=== PATIENT | female | born 1990 | race Caucasian/White ===

== ENCOUNTER 2017-06-16 04:54 | Inpatient (IN) | payer MEDICAID ==
[2017-06-16] MEDS ORDERED: MISOPROSTOL 0.2 MG TABLET ONE ×2 (05:10→11:30)
[2017-06-16] MEDS ORDERED: LIDOCAINE 1% INJ-PF (10 MG/ML) 30 ML SDV ONE ×2 (05:11→11:30)
[2017-06-16] MEDS ORDERED: FENTANYL/BUPIVACAINE/NS/PF 200 MCG/100 ML RTUINJ EPI ONE (05:11)
[2017-06-16] MEDS ORDERED: EPHEDRINE SULFATE INJ 50 MG/1 ML AMPULE ONE (05:11)
[2017-06-16] MEDS ORDERED: BUPIVACAINE HCL 0.25 % INJ/PF (2.5 MG/1 ML) 30 ML VIAL ONE (05:11)
[2017-06-16] MEDS ORDERED: OXYTOCIN/NORMAL SALINE 0 UNIT/0 ML RTUINJ ONE (05:11)
[2017-06-16] MEDS ORDERED: BUPIVACAINE HCL 0.25 % INJ/PF (2.5 MG/1 ML) 30 ML VIAL INFIL ONE (05:17)
[2017-06-16] MEDS ORDERED: FENTANYL/BUPIVACAINE/NS/PF 200 MCG/100 ML RTUINJ EPI PRN (05:17)
[2017-06-16] MEDS ORDERED: BENZOIN/ALOE VERA/STORAX/TOLU TINCTURE 60 ML TP PRN (05:17)
[2017-06-16] MEDS ORDERED: RINGERS SOLUTION,LACTATED 1,000 ML IV PRN (05:17)
[2017-06-16] MEDS ORDERED: EPHEDRINE SULFATE INJ 50 MG/1 ML AMPULE IV PRN (05:17)
[2017-06-16 06:00] LABS: ABSOLUTE BASOPHILS # (AUTO) 0.1 10^3/uL (0.0-0.2); ABSOLUTE EOSINOPHILS # (AUTO) 0.1 10^3/uL (0.0-0.6); ABSOLUTE LYMPHOCYTES (AUTO) 2.7 10^3/uL (0.5-4.7); BASOPHILS % (AUTO) 0.6 % (0-2); EOSINOPHILS % (AUTO) 0.4 % (0-6); HEMATOCRIT 38.2 % (36.0-47.0); HEMOGLOBIN 13.1 g/dL (12.0-15.5); HGB HCT DIFFERENCE 1.1; LYMPHOCYTES % (AUTO) 16.1 % (13-45); MEAN CORPUSCULAR HGB CONC 34.3 g/dL (32.0-36.0); MEAN CORPUSCULAR VOLUME 85 fl (80-97); MONOCYTES % (AUTO) 6.1 % (3-13); RED BLOOD COUNT 4.51 10^6/uL (3.72-5.28); RED CELL DISTRIBUTION WIDTH 13.5 % (11.5-14.0); SEGMENTED NEUTROPHILS % (AUTO) 76.8 % (42-78); WHITE BLOOD COUNT 16.9 10^3/uL (4.0-10.5)
[2017-06-16] MEDS: RINGERS SOLUTION,LACTATED 1,000 ML IV PRN ×2 (07:07→11:58)
[2017-06-16 10:18] LABS: APPEARANCE,URINE CLEAR; BILIRUBIN,URINE NEGATIVE (NEGATIVE); GLUCOSE, URINE NEGATIVE (NEGATIVE); KETONES,URINE TRACE mg/dL (NEGATIVE); LEUKOCYTE ESTERASE,URINE NEGATIVE (NEGATIVE); NITRITE,URINE NEGATIVE (NEGATIVE); PROTEIN,URINE NEGATIVE (NEGATIVE); URINE SPECIFIC GRAVITY 1.009; UROBILINOGEN,URINE NEGATIVE mg/dL (<2.0)
[2017-06-16 10:27] LABS: URINE BARBITURATES SCREEN NEGATIVE; URINE METHADONE SCREEN NEGATIVE; URINE OPIATES LOW NEGATIVE; URINE PHENCYCLIDINE SCREEN NEGATIVE
[2017-06-16] MEDS ORDERED: OXYTOCIN/NORMAL SALINE 1,000 ML IV PRN (11:30)
[2017-06-16] MEDS ORDERED: OXYTOCIN/NORMAL SALINE 20 UNIT/1,000 ML RTUINJ ONE (11:30)
--- NOTE | 2017-06-16 11:30 | L&D Progress Notes ---
PROGRESS NOTES Datetime Report Generated by CPN: 06/16/2017 11:29 PROGRESS NOTE Impression: Normal Progression of Labor Procedures: Artificial ROM; Sterile Vag Exam Plan: Continue Present Management; Augmentation Informed Consent Obtained: Vaginal Delivery Vital Signs : Within Normal Limits Comment: SVE performed with minimal cervical change since prior exam several hours ago. ctx q 2-5 min. Will begin pitocin to help with augmentation. AROM performed and clear fluid. Epidural in place and patient comfortable. Antcipate . EFW 7.5#. reassuring FWB VAGINAL EXAM Dilatation: 6 Dilatation: 5 Effacement: 90 Effacement: 100 Station: -1 Station: -1 MEMBRANES Membranes: Ruptured Membranes: Intact Amniotic Fluid Color: Clear FETUS A FHR - Baseline: 145 Monitoring: External US Variability: Moderate 6-25bpm Accelerations: 15X15 Decelerations: None FHR Category: Category I : 40.2 Presentation: Vertex SIGNATURE SIGNATURE: [id number];[id number] SIGNATURE: [id number] Signature: with User ID: [email or web address]
[2017-06-16] MEDS: OXYTOCIN/NORMAL SALINE 20 UNIT/1,000 ML RTUINJ IV PRN ×2 (11:58→17:54)
[2017-06-16] MEDS ORDERED: PROMETHAZINE HCL 25 MG SUPP.RECT PR PRN (17:00)
[2017-06-16] MEDS ORDERED: ACETAMINOPHEN 650 MG SUPP.RECT PR PRN (17:00)
[2017-06-16] MEDS ORDERED: BENZOCAINE/MENTHOL AEROSOL SPRAY 56 ML TOP PRN (17:00)
[2017-06-16] MEDS ORDERED: PROMETHAZINE HCL 25 MG TABLET PO PRN (17:00)
[2017-06-16] MEDS ORDERED: DIBUCAINE 1% OINTMENT 28 GM TP PRN (17:00)
[2017-06-16] MEDS ORDERED: DIPHENHYDRAMINE HCL 25 MG CAPSULE PO PRN (17:00)
[2017-06-16] MEDS ORDERED: DIPH/PERTUSS(ACELL)/TETANUS VAC/PF 0.5 ML SYR (>=10YO) IM PRN (17:00)
[2017-06-16] MEDS ORDERED: MAGNESIUM HYDROXIDE SUSP 30 ML UDCUP PO PRN (17:00)
[2017-06-16] MEDS ORDERED: GLYCERIN/WITCH HAZEL LEAF 1 EACH MED..PAD TP PRN (17:00)
[2017-06-16] MEDS ORDERED: PROMETHAZINE HCL INJ 25 MG/1 ML VIAL IV PRN (17:00)
[2017-06-16] MEDS ORDERED: OXYTOCIN/NORMAL SALINE 20 UNIT/1,000 ML RTUINJ IV PRN (17:00)
[2017-06-16] MEDS ORDERED: NA PHOS,M-B/NA PHOS,DI-BA (ADULT) 133 ML ENEMA PR PRN (17:00)
[2017-06-16] MEDS ORDERED: PSEUDOEPHEDRINE HCL 30 MG TABLET PO PRN (17:00)
[2017-06-16] MEDS ORDERED: MEASLES,MUMPS&RUBELLA VACC/PF 0.5 ML VIAL SUBCUT PRN (17:00)
[2017-06-16] MEDS ORDERED: ACETAMINOPHEN WITH CODEINE #3 TABLET PO PRN (17:00)
--- NOTE | 2017-06-16 18:07 | Delivery Summary ---
Del Sum A-C Datetime Report Generated by CPN: 06/16/2017 18:07 DELIVERY PERSONNEL DELIVERY PERSONNEL: [id number] Delivery Doctor:: Janny Viveros CNM Labor and Delivery Nurse:: Alice Gan RNprocess manager Nurse:: WINNIE Larsen Student Observers:: Sara, Student NICHOLAS Tirado, Student NICHOLAS Cox/RACE ENGINE BUILDER: Shayy Villalobos CNA II MATERNAL INFORMATION Delivery Anesthesia: Epidural Medications After Delivery: Pitocin Drip 20 Units/1000ml NSS Estimated Blood Loss (ml): 200 Maternal Complications: None Provider Comments: After prolonged decel pt progressed to c/c/+1. FSE placed without difficulty and multiple position changes were tried with minimal inc in heart tones. Dr. Ponce called into room to assess pt for possible forceps but heart tones recovered and baby moved with pushing. + accels. Pt. Continued to push in different positions and after much coaching went on to deliver a viable baby girl in OA direct position. Baby to maternal abdomen, vigorous resp effort and cry with tactile stimulation. cord allowed to stop pulsating then clamped x2 and cut by FOB ( 3vc noted). Placenta delivered spontaneously intact, fundus firm @ U-1,vaginal and perineal inspection with abrasions but no lacerations as stated. Mother and baby skin to skin, bonding and stable at this time. LABOR SUMMARY EDC: 06/14/2017 00:00 No. Babies in Womb: 1 Attempted: No Labor Anesthesia: Epidural LABOR INFORMATION Reason for Induction: Not Applicable Onset of Labor: 06/16/2017 05:05 Complete Dilatation: 06/16/2017 14:51 Group B Beta Strep: negative Steroids Given: None MEMBRANES Membranes Rupture Method: Artificial Rupture of Membranes: 06/16/2017 11:21 Length of Rupture (hr): 4.95 Amniotic Fluid Color: Clear Amniotic Fluid Amount: Small STAGES OF LABOR Stage 1 hr: 9 Stage 1 min: 46 Stage 2 hr: 1 Stage 2 min: 27 Stage 3 hr: 0 Stage 3 min: 5 Total Time in Labor hr: 11 Total Time in Labor min: 18 VAGINAL DELIVERY Episiotomy: None Laceration #1: None Laceration Extension #1: N/A Other Laceration: bilateral vaginal wall abrasions no perineal/labial tears Laceration Repair: No Laceration Repair Note: hemostatic no repair needed Sponge Count Correct: Yes Sharps Count Correct: Yes CSECTION DELIVERY Primary Indication: N/A Secondary Indication: N/A CSection Incidence: N/A Labor: N/A Elective: N/A CSection Incision: N/A BABY A INFORMATION Delivery Date/Time: 06/16/2017 16:18 Method of Delivery: Vaginal Born in Route : No : N/A Forceps: N/A Vacuum Extraction: N/A Shoulder Dystocia : No PRESENTATION/POSITION BABY A Presentation: Cephalic Cephalic Presentation: Face Vertex Position: OA Breech Presentation: N/A PLACENTA INFORMATION BABY A Placenta Delivery Time : 06/16/2017 16:23 Placenta Method of Delivery: Spontaneous Placenta Status: Delivered SCORES BABY A Heart Rate 1 min: >100 bpm Resp Effort 1 min: Good Cry Reflex Irritability 1 min: Cough or Sneeze or Pulls Away Muscle Tone 1 min: Some Flexion of Extremities Color 1 min: Body Ericson, Extremities Blue Resuscitation Effort 1 min: Tactile Stimulation SCORE 1 MIN: 8 Heart Rate 5 min: >100 bpm Resp Effort 5 min: Good Cry Reflex Irritability 5 min: Cough or Sneeze or Pulls Away Muscle Tone 5 min: Active Motion Color 5 min: Body Ericson, Extremities Blue Resuscitation Effort 5 min: Tactile Stimulation SCORE 5 MIN: 9 INFANT INFORMATION BABY A Gestational Age at Delivery: 40.2 Gestational Status: Full Term- 39- 40.6 Weeks Infant Outcome : Liveborn Condition : Stable Sex: Female IDENTIFICATION BABY A Infant Verification Date/Time: 06/16/2017 16:34 ID Band Number: [id number] Mother's Name Verified: Yes Infant RN Verifying Infant: Zoë Marin, RN Additional Verifying Personnel: Shannon Ray RN WEIGHT/LENGTH BABY A Infant Birthweight (gm): 3470 Infant Weight (lb): 7 Weight (oz): 10 Length (in): 21.00 Length (cm): 53.34 CORD INFORMATION BABY A No. Cord Vessels: 3 Nuchal Cord : N/A Cord Blood Taken: Yes-For Eval (Mom's Blood Type - or O+) ASSESSMENT BABY A Complications: None Physical Findings at Delivery: Within Normal Limits Infant Respirations: Appears Normal Skin to Skin: Yes Skin to Skin Time (min): 60 Infant Care By: NICHOLAS Marie Transferred To: Remains with Mother SIGNATURES Assignment: Dora Ponce MD Signature: with User ID: [email or web address] : with User ID: [email or web address]
--- NOTE | 2017-06-16 18:35 | Admission Physical ---
Datetime Report Generated by CPN: 06/16/2017 18:35 CURRENT ADMISSION Chief Complaint: Uterine Contractions Indication for Induction: Not Applicable Indication for Induction: Term, Intrauterine ; Active Labor; Intact Membranes Admit Plan: Admit to Unit; Initiate Labor Protocol ALLERGIES Medication Allergies: No Medication Allergies: No Known Allergies (06/16/2017) Medication Allergies: No Known Allergies (06/15/2017) Latex: No Latex Allergies OBSTETRICAL HISTORY EDC: 06/14/2017 00:00 : 2 Para: 0 Term: 0 : 0 SAB: 0 IAB: 1 Ectopic: 0 Livin Cesareans: 0 VBACs: 0 Multiple Births: 0 Gestational Diabetes: No Rh Sensitization: No Incompetent Cervix: No LORETTA: No Infertility: No ART Treatment: No Uterine Anomaly: No IUGR: No Hx Previous C/S: No Macrosomia: No Hx Loss/Stillborn: No PIH: No Hx : No Placenta Previa/Abruption: No Depression/PP Depression: No PTL/PROM: No Post Hemorrhage: No Current Procedures: Ultrasound; NST Obstetrical History Comments: 04/2010 IAB G2 - current SEE RECORDS Alcohol: No Marijuana : No Cocaine: No Other Illicit Drugs: No Cigarettes: Never Smoker. [id number] MEDICAL HISTORY Diabetes: No Blood Transfusion: No Pulmonary Disease (Asthma, TB): No Breast Disease: No Hypertension: No Seat Trimmer Surgery: No Heart Disease: No Hosp/Surgery: Yes Autoimmune Disorder: No Anesthetic Complications: No Kidney Disease: No Abnormal Pap Smear: No Neuro/Epilepsy: No Psychiatric Disorders: No Other Medical Diseases: No Hepatitis/Liver Disease: No Significant Family History: No Varicosities/Phlebitis: No Trauma/Violence : No Thyroid Dysfunction: No Medical History Comments: wisdom teeth INFECTIOUS HISTORY Gonorrhea: No Genital Herpes: No Chlamydia: No Tuberculosis: No Syphilis: No Hepatitis: No HIV/AIDS Exposure: No Rash or Viral Illness: No HPV: No PHYSICAL EXAM General: Normal HEENT: Normal Neurologic: Normal Thyroid: Deferred Heart: Normal Lungs: Normal Breast: Deferred Back: Normal Abdomen: Normal Genitourinary Exam: Normal Extremities: Normal DTRs: Normal Pelvic Type: Adequate Vital Signs: Reviewed; Within Normal Limits VAGINAL EXAM Dilatation: 6 Dilatation: 5 Effacement: 90 Effacement: 100 Station: -1 Station: -1 MEMBRANES Membranes: Ruptured Membranes: Intact Amniotic Fluid Color: Clear FETUS A EGA: 40.2 Monitoring: External US FHR- Baseline: 140 Variability: Moderate 6-25bpm Accelerations: 15X15 Decelerations: None FHR Category: Category I Presentation: Vertex PLANS FOR LABOR AND DELIVERY Labor and Delivery: None Pain Management: Epidural Feeding Preference: Both Circumcision: N/A INFORMED CONSENT Informed Consent Obtained: Vaginal Delivery Signature: with User ID: [email or web address]
[2017-06-16] MEDS: FERROUS SULFATE 325 MG TABLET PO SCH (19:01)
[2017-06-16] MEDS: DOCUSATE SODIUM 100 MG CAPSULE PO SCH (19:01)
[2017-06-16] MEDS: FAMOTIDINE 20 MG TABLET PO SCH (22:11)
[2017-06-16] MEDS: IBUPROFEN 800 MG TABLET PO SCH (22:11)
[2017-06-17] MEDS: IBUPROFEN 800 MG TABLET PO SCH ×3 (05:01→21:18)
[2017-06-17 08:02] LABS: HEMATOCRIT 33.1 % (36.0-47.0); HEMOGLOBIN 11.3 g/dL (12.0-15.5); HGB HCT DIFFERENCE 0.8; MEAN CORPUSCULAR HEMOGLOBIN 29.3 pg (27.0-33.4); MEAN CORPUSCULAR HGB CONC 34.2 g/dL (32.0-36.0); MEAN CORPUSCULAR VOLUME 86 fl (80-97); RED BLOOD COUNT 3.86 10^6/uL (3.72-5.28); RED CELL DISTRIBUTION WIDTH 13.8 % (11.5-14.0); WHITE BLOOD COUNT 14.2 10^3/uL (4.0-10.5)
[2017-06-17] MEDS: DOCUSATE SODIUM 100 MG CAPSULE PO SCH ×2 (10:01→17:49)
[2017-06-17] MEDS: PRENATAL VITAMIN W-O CA NO5/FE FUMARATE/FA CAPSULE PO SCH (10:01)
[2017-06-17] MEDS: SENNOSIDES/DOCUSATE 8.6-50 MG 1 EACH TABLET PO SCH (10:01)
[2017-06-17] MEDS: FERROUS SULFATE 325 MG TABLET PO SCH ×2 (10:01→17:49)
[2017-06-17] MEDS: FAMOTIDINE 20 MG TABLET PO SCH ×2 (10:01→21:19)
--- NOTE | 2017-06-17 11:16 | PDOC PROGRESS REPORT ---
Subjective-OB Subjective: Post Delivery Day: 27 year old. Denies any needs at this time Doing well, no c/o, Breast/btl feeding, scant bleeding, voiding Physical Exam (OB) Vital Signs: Temp Pulse Resp BP Pulse Ox 98.2 F 71 20 104/56 L 98 06/17/17 08:00 06/17/17 08:00 06/17/17 08:00 06/17/17 08:00 06/17/17 08:00 Intake & Output 06/16/17 06/17/17 06/18/17 06:59 06:59 06:59 Weight 82.917 kg - PIH/Pre-Eclampsia DTR's: 1 + Clonus: Negative Headache: Absent Epigastric Pain: No Visual Changes: No - Lochia Lochia Amount: Small 10-25 ml Lochia Color: Rubra/Red - Abdomen Description: Soft Hernia Present: No Fundal Description: Firm, Midline Fundal Height: u/u - u/2 Objective-Diagnostic Laboratory: 06/17/17 07:40 06/17/17 07:40 WBC 14.2 H RBC 3.86 Hgb 11.3 L Hct 33.1 L MCV 86 MCH 29.3 MCHC 34.2 RDW 13.8 Plt Count 148 L Assessment and Plan(PN) - Assessment and Plan (1) Normal vaginal delivery Is this a current diagnosis for this admission?: Yes - Time Spent with Patient Time with patient: Less than 15 minutes Medications reviewed and adjusted accordingly: Yes - Disposition Anticipated Discharge: Home Within: within 24 hours
[2017-06-18] MEDS: IBUPROFEN 800 MG TABLET PO SCH (05:11)
[2017-06-18] MEDS: FAMOTIDINE 20 MG TABLET PO SCH (09:23)
[2017-06-18] MEDS: SENNOSIDES/DOCUSATE 8.6-50 MG 1 EACH TABLET PO SCH (09:23)
[2017-06-18] MEDS: DOCUSATE SODIUM 100 MG CAPSULE PO SCH (09:23)
[2017-06-18] MEDS: PRENATAL VITAMIN W-O CA NO5/FE FUMARATE/FA CAPSULE PO SCH (09:23)
[2017-06-18] MEDS: FERROUS SULFATE 325 MG TABLET PO SCH (09:24)
[2017-06-18 09:27] VITALS: BP 104/56
--- NOTE | 2017-06-18 10:45 | PDOC DISCHARGE SUMMARY ---
Final Diagnosis Discharge Date: 06/18/17 Discharge Data - Discharge Medication Home Medications: 95/Iron Fum/Folic/Dha [ + Dha Combo Pack] 1 each PO DAILY 06/15 Ibuprofen [Motrin 800 mg Tablet] 800 mg PO Q8 #60 tablet 06/18/17 Reason(s) for Admission: Onset of Labor Procedures: NST Complication(s): Laceration-Labial Laceration-Degree: 1st - Diagnosis Test Laboratory: Temp Pulse Resp BP Pulse Ox 98.1 F 70 16 104/56 L 99 06/18/17 09:24 06/18/17 09:24 06/18/17 09:24 06/18/17 09:24 06/18/17 09:24 06/16/17 06/16/17 06/17/17 05:50 09:56 07:40 RBC 4.51 3.86 Hgb 13.1 11.3 L Hct 38.2 33.1 L Urine Opiates Screen NEGATIVE - Discharge information/Instructions Discharge Activity: Balance Activity w/Rest, Pelvic Rest, No tub bath Discharge Diet: Regular Disposition: HOME, SELF-CARE Follow up with: [facility] in: 4, Weeks
== END 2017-06-18 12:40 | disposition home or self-care (01) | DRG 775 ==
LOC: LC 04:54 → LR 05:12 → 2S 18:30
PROVIDERS: ADMIT Obstetrics & Gynecology; ATTEND Obstetrics & Gynecology
PROC: 10E0XZZ Delivery of Products of Conception, External Approach (ICD-10-PCS; principal; 2017-06-16)
PROC: 10907ZC Drainage of Amniotic Fluid, Therapeutic from Products of Conception, Via Natural or Artificial Opening (ICD-10-PCS; 2017-06-16)
PROC: 4A1HXCZ Monitoring of Products of Conception, Cardiac Rate, External Approach (ICD-10-PCS; 2017-06-16)
DX: O32.3XX0 Maternal care for face, brow and chin presentation, not applicable or unspecified (principal); O48.0 Post-term pregnancy; Z3A.40 40 weeks gestation of pregnancy; Z37.0 Single live birth
CPT/HCPCS: 36415; 80307; 81005; 85025; 85027; 86592; 86850; 86900; 86901; 94760; J2590; J3490

== ENCOUNTER 2017-12-05 19:06 | Emergency (ER) | payer SELFPAY ==
[2017-12-05 19:24] VITALS: BP 110/56
[2017-12-05] MEDS ORDERED: OXYCODONE-ACETAMINOPHEN 5-325 MG TABLET PO ONE (19:53)
--- NOTE | 2017-12-05 20:59 | RADIOLOGY REPORT (SQ) ---
EXAM DESCRIPTION: HAND BILATERAL 3 VIEWS COMPLETED DATE/TIME: 12/05/2017 8:43 pm REASON FOR STUDY: dog bites COMPARISON: None. EXAM PARAMETERS: NUMBER OF VIEWS: Three views. TECHNIQUE: AP, lateral and oblique radiographic images acquired of the right and left hand. LIMITATIONS: None. FINDINGS: MINERALIZATION: Normal. BONES: No acute fracture or dislocation. No worrisome bone lesions. JOINTS: No effusions. SOFT TISSUES: Left 2nd digit soft tissue swelling. No foreign body. OTHER: No other significant finding. IMPRESSION: No fracture. TECHNICAL DOCUMENTATION: JOB ID: [id number] [place]-[id number] 2010 [employer]- All Rights Reserved Reading location - IP/workstation name: [employer]
[2017-12-05] MEDS ORDERED: AMOXICILLIN TRIHYD 250 MG CAPSULE PO ONE (21:12)
[2017-12-05] MEDS ORDERED: AMOXICILLIN TR/POT CLAVULANATE 500-125 MG TAB PO ONE (21:12)
--- NOTE | 2017-12-05 21:13 | ER Document Report ---
HPI - HPI Patient complains to provider of: Dog bite Onset: Just prior to arrival Onset/Duration: Sudden Quality of pain: Sharp Pain Level: 3 Context: Patient states that she was attempting to stop her dogs from attacking 1 of her other dogs and got bit in the process. Patient with puncture wounds to bilateral hands with laceration to left second finger. Patient states her tetanus immunization is currently up-to-date. Associated Symptoms: Other - Puncture wounds, laceration abrasions to bilateral upper extremities Exacerbated by: Movement Relieved by: Denies Similar symptoms previously: No Recently seen / treated by doctor: No - ROS ROS below otherwise negative: Yes Systems Reviewed and Negative: Yes All other systems reviewed and negative - NEURO Neurology: DENIES: Headache - GASTROINTESTINAL Gastrointestinal: DENIES: Nausea, Patient vomiting - MUSCULOSKELETAL Musculoskeletal: REPORTS: Extremity pain, Swelling - DERM Skin Color: Normal Skin Problems: Abrasion, Laceration, Puncture Wound Past Medical History - General Information source: Patient - Social History Smoking Status: Never Smoker Chew tobacco use (# tins/day): No Frequency of alcohol use: None Drug Abuse: None Lives with: Family Family History: Reviewed & Not Pertinent Patient has suicidal ideation: No Patient has homicidal ideation: No - Medical History Medical History: Negative Renal/ Medical History: Denies: Hx Peritoneal Dialysis Surgical Hx: Negative Vertical Provider Document - CONSTITUTIONAL Agree With Documented VS: Yes Exam Limitations: No Limitations General Appearance: WD/WN, No Apparent Distress - INFECTION CONTROL TRAVEL OUTSIDE OF THE [place] IN LAST 30 DAYS: No - HEENT HEENT: Atraumatic, Normocephalic - NECK Neck: Normal Inspection, Supple - RESPIRATORY Respiratory: Breath Sounds Normal, No Respiratory Distress - CARDIOVASCULAR Cardiovascular: Regular Rate, Regular Rhythm Pulses: Normal: Radial - BACK Back: Normal Inspection - MUSCULOSKELETAL/EXTREMETIES Musculoskeletal/Extremeties: MAEW - NEURO Level of Consciousness: Awake, Alert, Appropriate Motor/Sensory: No Motor Deficit - DERM Integumentary: Warm, Dry, Laceration - 2 cm Palmar surface laceration of left second finger overlying the DIP joint, puncture wounds to right first, second and third finger, superficial laceration to dorsal aspect of right hand overlying fifth metacarpal Course - Re-evaluation Re-evalutation: 12/05/17 21:23 Patient's x-rays without findings concerning for any fracture or retained foreign body. Patient with laceration to the palmar surface of left second finger that appears only to go through the dermis and not into the subcutaneous tissue, will use Steri-Strips and immobilize finger due to high risk of infection. Patient encouraged to follow up for any signs concerning for infection. Patient encouraged to follow-up with a hand specialist for any persistent problems. - Vital Signs Vital signs: Temp Pulse Resp BP Pulse Ox 98.3 F 98 20 110/56 L 99 12/05/17 19:21 12/05/17 19:21 12/05/17 19:21 12/05/17 19:21 12/05/17 19:21 - Diagnostic Test Radiology reviewed: Image reviewed, Reports reviewed Procedures - Immobilization Left 2nd digit Pre-Proc Neuro Vasc Exam: Normal Immobilizer type: Finger splint (Static) Performed by: Provider Post-Proc Neuro Vasc Exam: Normal Alignment checked and good: Yes - Laceration/Wound Repair Left 2nd digit Wound length (cm): 2 Wound's Depth, Shape: Irregular Laceration pre-procedure: Other - surgical scrub Wound explored: Clean Irrigated w/ Saline (mLs): 1,000 Wound Repaired With: Steri-strips Post-procedure wound care: Sterile dressing applied, Splint applied Post-procedure NV exam normal: Yes Complications: No Discharge - Discharge Clinical Impression: Dog bite Qualifiers: Encounter type: initial encounter Qualified Code(s): W54.0XXA - Bitten by dog, initial encounter Hand laceration Qualifiers: Encounter type: initial encounter Foreign body presence: without foreign body Laterality: unspecified laterality Qualified Code(s): S61.419A - Laceration without foreign body of unspecified hand, initial encounter Puncture wound, hand Qualifiers: Encounter type: initial encounter Foreign body presence: without foreign body Laterality: unspecified laterality Qualified Code(s): S61.439A - Puncture wound without foreign body of unspecified hand, initial encounter Condition: Stable Disposition: HOME, SELF-CARE Instructions: Animal Bites ([facility]), Augmentin ([facility]), Non-Sutured Laceration ([facility]) , Prophylactic Antibiotic ([facility]), Puncture Wound ([facility]) Additional Instructions: Return immediately for any new or worsening symptoms Followup with your primary care provider, call tomorrow to make a followup appointment Return for any concerning signs of infection such as redness, swelling, fever, purulent drainage. Follow-up with orthopedic hand specialist for any continued problems Wear finger splint for the next 5 days and then remove Prescriptions: Amox Tr/Potassium Clavulanate [Augmentin 875-125 Tablet] 1 tab PO BID 10 Days tablet Naproxen [Naprosyn 250 Nmg Tablet] 1 tab PO BID #14 tablet Oxycodone HCl/Acetaminophen [Percocet 5-325 mg Tablet] 1 tab PO ASDIR PRN #12 tablet PRN Reason: Referrals: KAYLA DAWKINS DO [ACTIVE STAFF] - Follow up as needed
== END 2017-12-05 21:52 | disposition home or self-care (01) ==
LOC: ER 19:06
DX: S61.251A Open bite of left index finger without damage to nail, initial encounter (principal); S61.051A Open bite of right thumb without damage to nail, initial encounter; S61.250A Open bite of right index finger without damage to nail, initial encounter; S61.252A Open bite of right middle finger without damage to nail, initial encounter; S61.451A Open bite of right hand, initial encounter; W54.0XXA Bitten by dog, initial encounter; Y93.K9 Activity, other involving animal care; Y92.009 Unspecified place in unspecified non-institutional (private) residence as the place of occurrence of the external cause
CPT/HCPCS: 99283; 73130; 12001; J3490

== ENCOUNTER 2019-02-22 09:21 | Emergency (ER) | payer SELFPAY ==
[2019-02-22] MEDS ORDERED: HYDROCODONE/ACETAMINOPHEN 5-325 MG TABLET PO ONE (10:45)
--- NOTE | 2019-02-22 10:47 | ER Document Report ---
Addendum entered and electronically signed by RUBA THOMSON NP 02/22/19 15:25: Course - Re-evaluation Re-evalutation: 02/22/19 15:25 I personally reevaluated the patient at this time. Pain is controlled. Transport is at bedside for transport to [facility]. - Vital Signs Vital signs: Temp Pulse Resp BP Pulse Ox 97.4 F 73 16 119/64 100 02/22/19 14:23 02/22/19 14:23 02/22/19 14:23 02/22/19 14:23 02/22/19 14:23 Original Note: HPI - HPI Patient complains to provider of: Fall Onset: Yesterday Onset/Duration: Gradual Quality of pain: Achy Pain Level: 5 Context: She states she was drinking yesterday and fell from a balcony from about 8 foot height. Patient states that her foot slipped and she landed hitting her left foot and falling onto her back. Patient complains of left heel pain and left thoracic back pain. No head injury, no loss of consciousness. Patient states that she did not initially have pain although waking up this morning she noticed how sore she was. Patient states she is unable to bear weight to the left foot. Associated Symptoms: Other - upper back, L heel pain. denies: Headache, Nausea, Vomiting, Shortness of breath Exacerbated by: Movement, Walking Relieved by: Denies Similar symptoms previously: No Recently seen / treated by doctor: No - NEURO Neurology: DENIES: Headache, Weakness - CARDIOVASCULAR Cardiovascular: DENIES: Chest pain - RESPIRATORY Respiratory: DENIES: Trouble Breathing, Coughing - GASTROINTESTINAL Gastrointestinal: DENIES: Nausea, Patient vomiting - REPRODUCTIVE Reproductive: DENIES: : - MUSCULOSKELETAL Musculoskeletal: REPORTS: Extremity pain - Left heel, Back Pain. 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 IN LAST 30 DAYS: No - HEENT HEENT: Atraumatic, Normal ENT Exam, Normocephalic - NECK Neck: Normal Inspection, Supple. negative: Lymphadenopathy-Left, Lymphadenopathy-Right - RESPIRATORY Respiratory: Breath Sounds Normal, No Respiratory Distress - CARDIOVASCULAR Cardiovascular: Regular Rate, Regular Rhythm Pulses: Normal: Dorsalis pedis - BACK Back: Abnormal Inspection - Patient with midline thoracic spine tenderness T7-12 area, with edema, no ecchymosis. negative: CVA Tenderness-Right, CVA Tenderness-Left Notes: No lumbar midline tenderness step-off or deformity - MUSCULOSKELETAL/EXTREMETIES Musculoskeletal/Extremeties: MAEW, FROM, Tender - Tenderness to left foot os calcis no obvious edema or deformity - NEURO Level of Consciousness: Awake, Alert, Appropriate Motor/Sensory: No Motor Deficit - DERM Integumentary: Warm, Dry, No Rash <DERIC SWARTZ - Last Filed: 02/22/19 11:28> Course - Re-evaluation Re-evalutation: 02/22/19 11:28 Radiologist called noting a positive fracture and concerned that patient will need emergent neuro evaluation. Charge nurse advised and patient signed a room in the main emergency department. Patient updated as well. - Vital Signs Vital signs: Temp Pulse Resp BP Pulse Ox 97.3 F 80 12 116/64 98 02/22/19 09:39 02/22/19 09:39 02/22/19 09:39 02/22/19 09:39 02/22/19 09:39 <DERIC SWARTZ - Last Filed: 02/22/19 11:28> - Re-evaluation Re-evalutation: 02/22/19 13:30 I received handoff from this patient by Alka Swartz NP. I independently evaluating this patient and she has no neurological deficits. I contacted [facility] and spoke with trauma services, Dr. Elizabeth who has accepted the patient for transfer. Patient's pain is currently controlled after receiving oral Vicodin by provider in triage. She has been updated on the plan of care and is agreeable to same. 02/22/19 14:20 Patient was reevaluated at this time, pain is still controlled well after receiving the Vicodin. Patient understands the need to stay n.p.o. until she is seen by trauma services at [facility]. - Vital Signs Vital signs: Temp Pulse Resp BP Pulse Ox 97.3 F 80 12 116/64 98 02/22/19 09:39 02/22/19 09:39 02/22/19 09:39 02/22/19 09:39 02/22/19 09:39 <RUBA THOMSON - Last Filed: 02/22/19 14:21> Discharge <DERIC SWARTZ - Last Filed: 02/22/19 11:28> <RUBA THOMSON - Last Filed: 02/22/19 14:21> - Discharge Clinical Impression: Fall Qualifiers: Encounter type: initial encounter Qualified Code(s): W19.XXXA - Unspecified fall, initial encounter Closed T11 spinal fracture Qualifiers: Encounter type: initial encounter Fracture morphology: other fracture Qualified Code(s): S22.088A - Other fracture of T11-T12 vertebra, initial encounter for closed fracture Condition: Good Disposition: [facility]
[2019-02-22] MEDS ORDERED: PHENAZOPYRIDINE HCL 100 MG TABLET PO ONE (10:52)
--- NOTE | 2019-02-22 11:40 | RADIOLOGY REPORT (SQ) ---
EXAM DESCRIPTION: CT THORACIC SPINE WITHOUT COMPLETED DATE/TIME: 02/22/2019 11:08 am REASON FOR STUDY: fall from balcony, T back pain COMPARISON: None. TECHNIQUE: Axial images acquired through the thoracic spine without intravenous contrast. Images re viewed with lung, soft tissue and bone windows. Reconstructed coronal and sagittal MPR images review ed. Images stored on PACS. All CT scanners at this facility use dose modulation, iterative reconstruction, and/or weight based d osing when appropriate to reduce radiation dose to as low as reasonably achievable (ALARA). [facility]: Dose Right [facility]: CareDose [facility]: Dose Right [facility]: Teradose 4D [facility]: Smart Countdown To Buy RADIATION DOSE: CT Rad equipment meets quality standard of care and radiation dose reduction techniq ues were employed. CTDIvol: 17.1 mGy. DLP: 656 mGy-cm. mGy. LIMITATIONS: None. FINDINGS: VISUALIZED LUNGS: No acute opacities. No pneumothorax. SOFT TISSUES: No soft tissue swelling. No masses. VERTEBRAL BODIES: There is a anterior wedge deformity of the T11 vertebral body with extension throug h the anterior, middle and posterior columns and associated distraction of the pedicles measuring eugene roximately 5 mm. There is approximately 10% anterior height loss. No significant osseous retropulsi on into the spinal canal. No significant osseous neural foraminal narrowing. No additional fracture s identified. DISCS: Disc spaces are well maintained. ALIGNMENT: Exaggerated kyphosis centered at T11. TRANSVERSE PROCESSES, POSTERIOR ELEMENTS: As detailed above with the T11 fracture extending into the pedicles and associated distraction. No evidence of facet dislocation. HARDWARE: None in the spine. VISUALIZED RIBS: No fractures. OTHER: No other significant finding. IMPRESSION: 1. 3 column fracture of the T11 vertebral body with extension into the pedicles and ass ociated distraction (Chance type fracture). No evidence of high-grade osseous neural foraminal or sp inal canal stenosis. Recommend neurosurgery evaluation. Findings discussed with Sergio Lazo on 02/22/2019 at 1118 hours. TECHNICAL DOCUMENTATION: JOB ID: [id number] Quality ID # [id number]: Final reports with documentation of one or more dose reduction techniques (e.g., Au tomated exposure control, adjustment of the mA and/or kV according to patient size, use of iterative reconstruction technique) 2010 [employer]- All Rights Reserved Reading location - IP/workstation name: [email or web address]
--- NOTE | 2019-02-22 11:42 | RADIOLOGY REPORT (SQ) ---
EXAM DESCRIPTION: OS CALCIS/HEEL LEFT COMPLETED DATE/TIME: 02/22/2019 11:14 am REASON FOR STUDY: fall from balcony, heel pain COMPARISON: None. NUMBER OF VIEWS: Two views. TECHNIQUE: Plantar and lateral images acquired of the left calcaneous. LIMITATIONS: None. FINDINGS: MINERALIZATION: Normal. BONES: No acute fracture or dislocation. No worrisome bone lesions. Os peroneum. Trigonal process noted. JOINTS: No effusions. SOFT TISSUES: No soft tissue swelling. No foreign body. OTHER: No other significant finding. IMPRESSION: NEGATIVE STUDY OF THE LEFT CALCANEOUS. NO RADIOGRAPHIC EVIDENCE OF ACUTE INJURY. TECHNICAL DOCUMENTATION: JOB ID: [id number] [employer] All Rights Reserved Reading location - IP/workstation name: [email or web address]
[2019-02-22] MEDS ORDERED: MORPHINE SULFATE 10 MG/ML INJ IV ONE (15:01)
[2019-02-22 15:29] VITALS: BP 129/55
== END 2019-02-22 15:43 | disposition short-term general hospital (02) ==
LOC: ER 09:21
DX: S22.088 Other fracture of T11-T12 vertebra (principal); M54.6 Pain in thoracic spine; M79.672 Pain in left foot; W13.0XXA Fall from, out of or through balcony, initial encounter
CPT/HCPCS: 99285; 96374; 73650; 72128; J2270